=== PATIENT | female | born 1965 | race Caucasian/White ===

== ENCOUNTER 2020-11-12 14:35 | Emergency (ER) | payer OTHER ==
[~2020-11-12] VITALS: Ht 12.7 cm; Wt 1.4 kg
[2020-11-12 14:46] VITALS: BP 124/63
[2020-11-12] MEDS ORDERED: traMADol 50 MG TAB PO ONE (15:45)
[2020-11-12] MEDS ORDERED: LIDOCAINE OINTMENT 5% 35 GM TUBE TP ONE ×3 (16:15→17:52)
[2020-11-12] MEDS ORDERED: NACL 0.9% 1,000 ML IV ONE (16:15)
[2020-11-12] MEDS ORDERED: ONDANSETRON 4 MG/2 ML VIAL IVP ONE (16:20)
[2020-11-12 16:39] LABS: BASOPHILS # (AUTO) 0.1 K/uL (0.00-0.22); BASOPHILS % (AUTO) 0.9 % (0.0-2.0); EOSINOPHILS # (AUTO) 0.6 K/uL (0-0.4); EOSINOPHILS % (AUTO) 6.1 % (0.0-4.0); HEMATOCRIT 38.4 % (36-48); HEMOGLOBIN 12.9 g/dL (12.0-16.0); LYMPHOCYTES # (AUTO) 3.6 K/uL (2.5-16.5); LYMPHOCYTES % (AUTO) 39.7 % (20.5-51.1); MEAN CORPUSCULAR HEMOGLOBIN 31 pg (27-31); MEAN CORPUSCULAR HGB CONC 34 g/dL (33-37); MEAN CORPUSCULAR VOLUME 93.3 fL (80-94); MONOCYTES # (AUTO) 0.4 K/uL (0.8-1.0); MONOCYTES % (AUTO) 4.4 % (1.7-9.3); NEUTROPHILS # (AUTO) 4.4 K/uL (1.8-7.7); NEUTROPHILS % (AUTO) 48.9 % (42.2-75.2); PLATELET COUNT (AUTO) 159 K/uL (140-450); RED BLOOD CELL COUNT(AUTO) 4.12 MIL/uL (4.20-5.40); RED CELL DISTRIBUTION WIDTH 12.8 % (11.6-13.7); WHITE BLOOD COUNT (AUTO) 9.1 K/uL (4.8-10.8)
[2020-11-12] MEDS ORDERED: MORPHINE SULFATE 4 MG/ML SYR IVP ONE (16:40)
[2020-11-12 16:49] LABS: ANION GAP 17.1 (8-16); CARBON DIOXIDE 22.7 mmol/L (21-32); CREATININE 0.9 mg/dL (0.6-1.3); POTASSIUM 3.8 mmol/L (3.5-5.1)
[2020-11-12 16:53] LABS: BARBITURATE, URINE NEGATIVE ng/ml (NEG <=200); BENZODIAZEPINE, URINE NEGATIVE ng/mL (NEG <=200); CANNABINOID, URINE POSITIVE ng/mL (NEG <=50); COCAINE, URINE NEGATIVE ng/mL (NEG <=300); OPIATE, URINE NEGATIVE ng/mL (NEG <=2000); PHENCYCLIDINE SCREEN,URINE NEGATIVE ng/mL (NEG <=25)
[2020-11-12 17:54] VITALS: BP 117/60
== END 2020-11-12 17:50 | disposition home or self-care (01) ==
LOC: MED 14:35
DX: D33.2 Benign neoplasm of brain, unspecified (principal); E11.9 Type 2 diabetes mellitus without complications
CPT/HCPCS: 36415; 70450; 80048; 80305; 81002; 81025; 85025; 96361; 96374; 96375; 99284; J2270; J2405; J7030

== ENCOUNTER 2020-12-10 21:38 | Emergency (ER) | payer OTHER ==
[~2020-12-10] VITALS: Ht 157.5 cm; Wt 90.7 kg
[2020-12-10 21:45] VITALS: BP 133/78
[2020-12-10] MEDS ORDERED: METOCLOPRAMIDE 10 MG/2 ML INJ VIAL IVP ONE (22:35)
[2020-12-10 22:36] LABS: BASOPHILS # (AUTO) 0.1 K/uL (0.00-0.22); BASOPHILS % (AUTO) 1.3 % (0.0-2.0); EOSINOPHILS # (AUTO) 0.3 K/uL (0-0.4); EOSINOPHILS % (AUTO) 3.8 % (0.0-4.0); HEMATOCRIT 40.7 % (36-48); HEMOGLOBIN 13.9 g/dL (12.0-16.0); LYMPHOCYTES # (AUTO) 4.3 K/uL (2.5-16.5); LYMPHOCYTES % (AUTO) 50.9 % (20.5-51.1); MEAN CORPUSCULAR HEMOGLOBIN 31 pg (27-31); MEAN CORPUSCULAR HGB CONC 34 g/dL (33-37); MEAN CORPUSCULAR VOLUME 92.1 fL (80-94); MONOCYTES # (AUTO) 0.6 K/uL (0.8-1.0); MONOCYTES % (AUTO) 6.8 % (1.7-9.3); NEUTROPHILS # (AUTO) 3.1 K/uL (1.8-7.7); NEUTROPHILS % (AUTO) 37.2 % (42.2-75.2); PLATELET COUNT (AUTO) 161 K/uL (140-450); RED BLOOD CELL COUNT(AUTO) 4.42 MIL/uL (4.20-5.40); RED CELL DISTRIBUTION WIDTH 12.9 % (11.6-13.7); WHITE BLOOD COUNT (AUTO) 8.4 K/uL (4.8-10.8)
[2020-12-10] MEDS ORDERED: KETOROLAC 15 MG/ML VIAL IVP ONE (22:50)
[2020-12-10] MEDS ORDERED: NACL 0.9% 1,000 ML IV ONE (22:50)
[2020-12-10 22:57] LABS: ALBUMIN 3.6 g/dL (3.4-5.0); ANION GAP 10.1 (8-16); CARBON DIOXIDE 26.5 mmol/L (21-32); CREATININE 0.7 mg/dL (0.6-1.3); MAGNESIUM 1.5 mg/dL (1.8-2.4); PHOSPHORUS 2.9 mg/dL (2.5-4.9); POTASSIUM 3.6 mmol/L (3.5-5.1); TOTAL BILIRUBIN 0.5 mg/dL (0.0-1.0)
[2020-12-10] MEDS ORDERED: ALBUTEROL HFA MDI 90 MCG/ACTUATION 8 GM INH ONE (23:15)
[2020-12-10 23:58] LABS: APPEARANCE,URINE CLEAR (CLEAR); BILIRUBIN,URINE NEGATIVE (NEGATIVE); BLOOD, URINE NEGATIVE (NEGATIVE); COLOR,URINE YELLOW (YELLOW); LEUKOCYTE ESTERASE ,URINE 1+ (NEGATIVE); NITRITE, URINE NEGATIVE (NEGATIVE); UGLUCOSE NEGATIVE (NEGATIVE)
[2020-12-11 00:08] LABS: RBC,URINE 0-5 /HPF (0-5)
[2020-12-11] MEDS ORDERED: ONDA-24 SL (00:43)
[2020-12-11] MEDS ORDERED: AMOX-1000 PO (00:43)
[2020-12-11] MEDS ORDERED: METR500T1 PO (00:43)
[2020-12-11 00:54] VITALS: BP 112/69
== END 2020-12-11 00:54 | disposition home or self-care (01) ==
LOC: MED 21:38
DX: R10.11 Right upper quadrant pain (principal); R42 Dizziness and giddiness; R11.0 Nausea; F12.10 Cannabis abuse, uncomplicated; E11.9 Type 2 diabetes mellitus without complications; E07.9 Disorder of thyroid, unspecified
CPT/HCPCS: 36415; 74176; 80053; 81001; 81025; 83690; 83735; 84100; 84484; 85025; 87086; 93005; 94664; 96361; 96374; 96375; 99285; J1885; J2765; J7030

== ENCOUNTER 2020-12-19 14:01 | Emergency (ER) | payer OTHER ==
[~2020-12-19] VITALS: Ht 157.5 cm; Wt 90.7 kg
[~2020-12-19 14:01] MED LIST: AMOX-1000 PO; METR500T1 PO; ONDA-24 SL
[2020-12-19 14:03] VITALS: BP 102/62
--- NOTE | 2020-12-19 14:13 | NUR ---
Pt ambulated to bed 04 steady/even gait.
--- NOTE | 2020-12-19 14:18 | NUR ---
Dr. Ellison is evaluating patient at bedside.
--- NOTE | 2020-12-19 14:20 | NUR ---
55 y/o F BIB self from home with c/c R finger pain. Patient A&Ox4, states she injured her R 5th digit, states 10/10 throbbing/constant, non-radiating pain. Limited ROM, unable to wiggle fingers, +CMS. States Ibuprofen without relief. Denies N/V/D, dizziness, FOOTE, other injuries. Bed locked in loewst position, side rails x 1. PMH: DM, hypothyroidism, asthma Meds: metformin, levothyroxine NKA Sx:
[2020-12-19] MEDS ORDERED: NAPR-54 PO (14:51)
[2020-12-19] MEDS ORDERED: KETOROLAC 30 MG/ML VIAL IM ONE (14:55)
[2020-12-19 15:30] VITALS: BP 102/62
== END 2020-12-19 15:50 | disposition home or self-care (01) ==
LOC: MED 14:01
DX: S63.616A Unspecified sprain of right little finger, initial encounter (principal); E11.9 Type 2 diabetes mellitus without complications; E07.9 Disorder of thyroid, unspecified; Z79.899 Other long term (current) drug therapy; X58.XXXA Exposure to other specified factors, initial encounter; Y93.89 Activity, other specified; Y92.89 Other specified places as the place of occurrence of the external cause; Y99.8 Other external cause status
CPT/HCPCS: 29130; 73130; 96372; 99283; J1885

== ENCOUNTER 2021-04-30 10:08 | Emergency (ER) | payer OTHER ==
[~2021-04-30] VITALS: Ht 157.5 cm; Wt 81.6 kg
[~2021-04-30 10:08] MED LIST changes: +NAPR-54 PO; +ONDA-188 SL; -ONDA-24 SL
[2021-04-30 10:11] VITALS: BP 129/79
[2021-04-30] MEDS ORDERED: HYDROcodone/APAP 5/325 MG 1 TAB TAB PO ONE (10:45)
[2021-04-30] MEDS ORDERED: MECL-303 PO (13:06)
[2021-04-30 13:23] LABS: APPEARANCE,URINE CLEAR (CLEAR); BILIRUBIN,URINE NEGATIVE (NEGATIVE); BLOOD, URINE NEGATIVE (NEGATIVE); COLOR,URINE YELLOW (YELLOW); LEUKOCYTE ESTERASE ,URINE NEGATIVE (NEGATIVE); NITRITE, URINE NEGATIVE (NEGATIVE); UGLUCOSE 3+ (NEGATIVE)
[2021-04-30 13:36] LABS: RBC,URINE 0-5 /HPF (0-5); WBC,URINE 0-5 /HPF (0-5)
[2021-04-30] MEDS ORDERED: IBUPROFEN 400 MG TAB PO ONE (13:50)
[2021-04-30 14:02] VITALS: BP 123/86
== END 2021-04-30 14:02 | disposition home or self-care (01) ==
LOC: MED 10:08
DX: R51.9 Headache, unspecified (principal); E11.9 Type 2 diabetes mellitus without complications; G93.89 Other specified disorders of brain; Z86.69 Personal history of other diseases of the nervous system and sense organs; Z86.39 Personal history of other endocrine, nutritional and metabolic disease; Z79.899 Other long term (current) drug therapy; Z79.1 Long term (current) use of non-steroidal anti-inflammatories (NSAID); Z79.2 Long term (current) use of antibiotics
CPT/HCPCS: 70450; 81001; 93005; 99285

== ENCOUNTER 2021-06-24 12:23 | Emergency (ER) | payer OTHER ==
[~2021-06-24] VITALS: Ht 157.5 cm; Wt 83.9 kg
[~2021-06-24 12:23] MED LIST changes: +MECL-303 PO
[2021-06-24 12:26] VITALS: BP 125/90
--- NOTE | 2021-06-24 12:35 | NUR ---
C/O 12/10 HEAD / NECK PAIN S/P SYNCOPE , DIZZINESS & FALL X YESTERDAY. PMH: BRAIN TUMOR, ASTHMA, SEIZURE , CVA, C SECTION
[2021-06-24 13:09] LABS: BASOPHILS % (AUTO) 0.7 % (0.0-2.0); EOSINOPHILS # (AUTO) 0.1 K/uL (0-0.4); HEMATOCRIT 48.1 % (36-48); HEMOGLOBIN 16.4 g/dL (12.0-16.0); LYMPHOCYTES # (AUTO) 2.6 K/uL (2.5-16.5); LYMPHOCYTES % (AUTO) 44.4 % (20.5-51.1); MEAN CORPUSCULAR HEMOGLOBIN 31 pg (27-31); MEAN CORPUSCULAR HGB CONC 34 g/dL (33-37); MEAN CORPUSCULAR VOLUME 91.4 fL (80-94); MONOCYTES # (AUTO) 0.5 K/uL (0.8-1.0); MONOCYTES % (AUTO) 8.8 % (1.7-9.3); NEUTROPHILS # (AUTO) 2.6 K/uL (1.8-7.7); NEUTROPHILS % (AUTO) 44.1 % (42.2-75.2); PLATELET COUNT (AUTO) 178 K/uL (140-450); RED BLOOD CELL COUNT(AUTO) 5.26 MIL/uL (4.20-5.40); RED CELL DISTRIBUTION WIDTH 13.7 % (11.6-13.7)
[2021-06-24] MEDS ORDERED: ACETAMINOPHEN EXTRA STRENGTH 500 MG TAB PO ONE (13:45)
[2021-06-24 13:50] LABS: ANION GAP 11.9 (8-16); CARBON DIOXIDE 26.1 mmol/L (21-32); CREATININE 0.9 mg/dL (0.6-1.3); TOTAL BILIRUBIN 0.6 mg/dL (0.0-1.0)
[2021-06-24 16:26] VITALS: BP 125/90
--- NOTE | 2021-06-24 16:26 | NUR ---
DC WITHOUT DC PAPER.Patient discharged with v/s stable. Written and verbal after care instructions given and explained. Patient verbalized understanding. Ambulatory with steady gait. All questions addressed prior to discharge. Advised to follow up with PMD.
== END 2021-06-24 16:26 | disposition home or self-care (01) ==
LOC: MED 12:23
DX: R55 Syncope and collapse (principal); R11.0 Nausea; R51.9 Headache, unspecified; E11.9 Type 2 diabetes mellitus without complications; E07.9 Disorder of thyroid, unspecified; Z79.899 Other long term (current) drug therapy
CPT/HCPCS: 36415; 70450; 70496; 70498; 71045; 80053; 84484; 85025; 93005; 99285; Q9967

== ENCOUNTER 2022-03-01 18:53 | Emergency (ER) | payer OTHER ==
[~2022-03-01] VITALS: Ht 157.5 cm; Wt 86.2 kg
[2022-03-01 19:10] VITALS: BP 133/77
--- NOTE | 2022-03-01 19:13 | NUR ---
TO LABBY A/W BED AMBULATORY
--- NOTE | 2022-03-01 19:56 | NUR ---
PT TO BED 7
--- NOTE | 2022-03-01 20:12 | NUR ---
Patient being evaluated by physician at bedside.
--- NOTE | 2022-03-01 20:15 | NUR ---
RECEIVED IN BED 7 WITH C/O A/P. PT WITH H/O GASTRIC BYPASS
[2022-03-01] MEDS ORDERED: MORPHINE SULFATE 4 MG/ML SYR IVP ONE ×2 (20:25→23:15)
[2022-03-01] MEDS ORDERED: ONDANSETRON 4 MG/2 ML VIAL IVP ONE ×2 (20:25→23:15)
[2022-03-01 20:45] LABS: BASOPHILS # (AUTO) 0.1 K/uL (0.00-0.22); BASOPHILS % (AUTO) 0.8 % (0.0-2.0); EOSINOPHILS # (AUTO) 0.2 K/uL (0-0.4); EOSINOPHILS % (AUTO) 3.3 % (0.0-4.0); HEMATOCRIT 41.7 % (36-48); HEMOGLOBIN 14.1 g/dL (12.0-16.0); LYMPHOCYTES # (AUTO) 3.9 K/uL (2.5-16.5); LYMPHOCYTES % (AUTO) 51.8 % (20.5-51.1); MEAN CORPUSCULAR HEMOGLOBIN 31 pg (27-31); MEAN CORPUSCULAR HGB CONC 34 g/dL (33-37); MEAN CORPUSCULAR VOLUME 91.3 fL (80-94); MONOCYTES # (AUTO) 0.4 K/uL (0.8-1.0); MONOCYTES % (AUTO) 5.1 % (1.7-9.3); NEUTROPHILS # (AUTO) 2.9 K/uL (1.8-7.7); PLATELET COUNT (AUTO) 178 K/uL (140-450); RED BLOOD CELL COUNT(AUTO) 4.56 MIL/uL (4.20-5.40); RED CELL DISTRIBUTION WIDTH 12.8 % (11.6-13.7); WHITE BLOOD COUNT (AUTO) 7.5 K/uL (4.8-10.8)
--- NOTE | 2022-03-01 20:50 | NUR ---
UA TO LAB
[2022-03-01 21:06] LABS: APPEARANCE,URINE CLEAR (CLEAR); BILIRUBIN,URINE 1+ (NEGATIVE); BLOOD, URINE NEGATIVE (NEGATIVE); COLOR,URINE YELLOW (YELLOW); LEUKOCYTE ESTERASE ,URINE NEGATIVE (NEGATIVE); NITRITE, URINE NEGATIVE (NEGATIVE); UGLUCOSE NEGATIVE (NEGATIVE)
[2022-03-01 21:08] LABS: ALBUMIN 3.5 g/dL (3.4-5.0); ANION GAP 12.3 (8-16); ASPARTATE AMINOTRANSFERASE 40 U/L (15-37); CARBON DIOXIDE 28.4 mmol/L (21-32); CHLORIDE 104 mmol/L (98-107); CREATININE 0.7 mg/dL (0.6-1.3); GFR ARICAN-AMERICAN 112 mL/min (>90); GLUCOSE 167 mg/dL (74-106); LIPASE 79 U/L (73-393); POTASSIUM 3.7 mmol/L (3.5-5.1); SODIUM SERUM 141 mmol/L (136-145); TOTAL BILIRUBIN 0.7 mg/dL (0.0-1.0); UREA NITROGEN, BLOOD 10 mg/dL (7-18)
[2022-03-01] MEDS ORDERED: ACET-8386 PO (23:58)
[2022-03-01] MEDS ORDERED: SUCR1TAB35 PO (23:58)
[2022-03-01] MEDS ORDERED: FAMO-90 PO (23:58)
--- NOTE | 2022-03-02 00:30 | NUR ---
Patient discharged with v/s stable. Written and verbal after care instructions given and explained. Patient alert, oriented and verbalized understanding of instructions. Ambulatory with steady gait. All questions addressed prior to discharge. ID band removed. Patient advised to follow up with PMD. Rx of CARAFATE, PEPCID, AND HYDROCODONE given. Patient educated on indication of medication including possible reaction and side effects. Opportunity to ask questions provided and answered.
== END 2022-03-02 00:30 | disposition home or self-care (01) ==
LOC: MED 18:53
DX: R10.13 Epigastric pain (principal)
CPT/HCPCS: 36415; 71045; 74177; 80053; 81003; 83690; 84484; 85025; 93005; 96374; 96375; 96376; 99285; J2270; J2405; Q9967

== ENCOUNTER 2022-06-17 09:54 | Emergency (ER) | payer OTHER ==
[~2022-06-17] VITALS: Ht 157.5 cm; Wt 87.1 kg
[~2022-06-17 09:54] MED LIST changes: +ACET-8905 PO; +FAMO-90 PO; +SUCR1TAB35 PO
[2022-06-17 10:00] VITALS: BP 120/98
[2022-06-17] MEDS ORDERED: DICYCLOMINE 20 MG/2 ML VIAL IM ONE (10:10)
[2022-06-17] MEDS ORDERED: METOCLOPRAMIDE 10 MG/2 ML INJ VIAL IM ONE (10:10)
[2022-06-17] MEDS ORDERED: ALUMINUM HYD/MAG/SIMETHICONE 30 ML UDC PO ONE (10:10)
[2022-06-17 10:46] LABS: BASOPHILS # (AUTO) 0.1 K/uL (0.00-0.22); BASOPHILS % (AUTO) 1.5 % (0.0-2.0); EOSINOPHILS # (AUTO) 0.1 K/uL (0-0.4); EOSINOPHILS % (AUTO) 1.8 % (0.0-4.0); HEMATOCRIT 43.5 % (36-48); HEMOGLOBIN 15.2 g/dL (12.0-16.0); LYMPHOCYTES # (AUTO) 2.9 K/uL (2.5-16.5); LYMPHOCYTES % (AUTO) 42.2 % (20.5-51.1); MEAN CORPUSCULAR HEMOGLOBIN 31 pg (27-31); MEAN CORPUSCULAR HGB CONC 35 g/dL (33-37); MEAN CORPUSCULAR VOLUME 88.9 fL (80-94); MONOCYTES # (AUTO) 0.3 K/uL (0.8-1.0); MONOCYTES % (AUTO) 3.9 % (1.7-9.3); NEUTROPHILS # (AUTO) 3.5 K/uL (1.8-7.7); NEUTROPHILS % (AUTO) 50.6 % (42.2-75.2); PLATELET COUNT (AUTO) 173 K/uL (140-450); RED BLOOD CELL COUNT(AUTO) 4.89 MIL/uL (4.20-5.40); RED CELL DISTRIBUTION WIDTH 13.4 % (11.6-13.7); WHITE BLOOD COUNT (AUTO) 6.9 K/uL (4.8-10.8)
[2022-06-17 11:06] LABS: ALBUMIN 4.1 g/dL (3.4-5.0); ANION GAP 14.6 (8-16); CREATININE 0.8 mg/dL (0.6-1.3); POTASSIUM 3.6 mmol/L (3.5-5.1); TOTAL BILIRUBIN 0.9 mg/dL (0.0-1.0)
[2022-06-17] MEDS ORDERED: IBUPROFEN 600 MG TAB PO ONE (11:45)
[2022-06-17] MEDS ORDERED: FAMOTIDINE 20 MG TAB PO ONE (11:45)
[2022-06-17] MEDS ORDERED: ACETAMINOPHEN EXTRA STRENGTH 500 MG TAB PO ONE (11:45)
[2022-06-17 11:47] LABS: APPEARANCE,URINE HAZY (CLEAR); BILIRUBIN,URINE 2+ (NEGATIVE); BLOOD, URINE NEGATIVE (NEGATIVE); COLOR,URINE YELLOW (YELLOW); LEUKOCYTE ESTERASE ,URINE NEGATIVE (NEGATIVE); NITRITE, URINE NEGATIVE (NEGATIVE); PH,URINE 5.5 (5.0-9.0); UGLUCOSE 1+ (NEGATIVE)
[2022-06-17 12:02] LABS: RBC,URINE NONE SEEN /HPF (0-5); WBC,URINE 0-5 /HPF (0-5)
[2022-06-17 12:03] LABS: URINE AMORPHOUS URATE 1+ /HPF (None Seen)
--- NOTE | 2022-06-17 12:20 | NUR ---
a/o times 4, nad, abd pain 6/, + nausea, o2 sat 99% ra, sr up times2
--- NOTE | 2022-06-17 12:45 | NUR ---
pt feels better about abd pain 08/10, o2 sat 99% ra, sr up times 2
[2022-06-17] MEDS ORDERED: ACET-9525 PO (12:48)
[2022-06-17] MEDS ORDERED: METO-485 PO (12:48)
[2022-06-17 13:05] VITALS: BP 112/75
--- NOTE | 2022-06-17 13:15 | NUR ---
Patient discharged with v/s stable. Written and verbal after care instructions given and explained. Patient verbalized understanding. Ambulatory with steady gait. All questions addressed prior to discharge. Advised to follow up with PMD.
== END 2022-06-17 13:15 | disposition home or self-care (01) ==
LOC: MED 09:54
DX: R10.13 Epigastric pain (principal); Z20.822 Contact with and (suspected) exposure to COVID-19; R11.2 Nausea with vomiting, unspecified; R19.7 Diarrhea, unspecified; K44.9 Diaphragmatic hernia without obstruction or gangrene; I10 Essential (primary) hypertension; E11.9 Type 2 diabetes mellitus without complications; E07.9 Disorder of thyroid, unspecified; J44.9 Chronic obstructive pulmonary disease, unspecified; K21.9 Gastro-esophageal reflux disease without esophagitis; Z79.899 Other long term (current) drug therapy
CPT/HCPCS: 36415; 80053; 81001; 83690; 85025; 87426; 87804; 96372; 99284; J0500; J2765

== ENCOUNTER 2022-08-17 09:10 | Emergency (ER) | payer OTHER ==
[~2022-08-17] VITALS: Ht 157.5 cm; Wt 89.4 kg
[~2022-08-17 09:10] MED LIST changes: +ACET-9525 PO; +METO-485 PO
[2022-08-17 09:13] VITALS: BP 125/52
--- NOTE | 2022-08-17 10:35 | NUR ---
pt amb to bed 12
--- NOTE | 2022-08-17 10:52 | NUR ---
MD at bedside evaluating patient
== END 2022-08-17 11:07 | disposition home or self-care (01) ==
LOC: MED 09:10
DX: H00.014 Hordeolum externum left upper eyelid (principal); J45.909 Unspecified asthma, uncomplicated; I10 Essential (primary) hypertension; K21.9 Gastro-esophageal reflux disease without esophagitis; E03.9 Hypothyroidism, unspecified; Z79.899 Other long term (current) drug therapy
CPT/HCPCS: 99282

== ENCOUNTER 2022-11-12 17:50 | Emergency (ER) | payer OTHER ==
[~2022-11-12] VITALS: Ht 160 cm; Wt 81.6 kg
[2022-11-12 18:03] VITALS: BP 144/79
--- NOTE | 2022-11-12 18:20 | NUR ---
pt ambulated to bed 3 from [facility]
--- NOTE | 2022-11-12 18:53 | NUR ---
radiology wheeled pt to ct scan
--- NOTE | 2022-11-12 19:15 | NUR ---
Pt report given to Noe CORRIGAN. Transfer of care at this time.
--- NOTE | 2022-11-12 19:20 | NUR ---
Patient resting in bed, A/Ox4, chest rise and fall symmetrical, no c/o pain or s/s of distress, on monitor.
[2022-11-12] MEDS ORDERED: ONDANSETRON 4 MG/2 ML VIAL IVP ONE (19:50)
[2022-11-12] MEDS ORDERED: MORPHINE SULFATE 4 MG/ML SYR IVP ONE (19:50)
[2022-11-12 20:18] LABS: BASOPHILS # (AUTO) 0.1 K/uL (0.00-0.22); EOSINOPHILS # (AUTO) 0.3 K/uL (0-0.4); HEMATOCRIT 42.2 % (36-48); HEMOGLOBIN 14.4 g/dL (12.0-16.0); LYMPHOCYTES # (AUTO) 3.9 K/uL (2.5-16.5); LYMPHOCYTES % (AUTO) 50.4 % (20.5-51.1); MEAN CORPUSCULAR HEMOGLOBIN 31 pg (27-31); MEAN CORPUSCULAR HGB CONC 34 g/dL (33-37); MEAN CORPUSCULAR VOLUME 91.6 fL (80-94); MONOCYTES # (AUTO) 0.3 K/uL (0.8-1.0); MONOCYTES % (AUTO) 4.3 % (1.7-9.3); NEUTROPHILS # (AUTO) 3.1 K/uL (1.8-7.7); NEUTROPHILS % (AUTO) 40.3 % (42.2-75.2); PLATELET COUNT (AUTO) 174 K/uL (140-450); RED BLOOD CELL COUNT(AUTO) 4.61 MIL/uL (4.20-5.40); RED CELL DISTRIBUTION WIDTH 13.6 % (11.6-13.7); WHITE BLOOD COUNT (AUTO) 7.8 K/uL (4.8-10.8)
[2022-11-12 20:30] LABS: ANION GAP 12.1 (8-16); CARBON DIOXIDE 27.8 mmol/L (21-32); CREATININE 0.7 mg/dL (0.6-1.3); POTASSIUM 3.9 mmol/L (3.5-5.1)
--- NOTE | 2022-11-12 20:33 | NUR ---
Patient resting in bed, A/Ox4, chest rise and fall symmetrical, no c/o pain or s/s of distress, on monitor.
--- NOTE | 2022-11-12 21:37 | NUR ---
PT ACCEPTED TO [facility] ER BY DR ZULETA, FOR ER-ER TRANSFER. # FOR REPORT [phone]
--- NOTE | 2022-11-12 22:02 | NUR ---
Patient to be transferred to [facility] ER. Is being transferred due to higher level of care. Receiving facility has accepting physician and available space. ER physician has signed transfer form. Patient or responsible democrat has agreed to transfer and signed form. Patient belongings inventoried and will be sent with patient. Copy of nursing notes, lab reports, EKG, Physicians Orders and X-rays to be sent with patient. Report called to [facility] ER Nurse Ronda CORRIGAN at receiving facility. [facility] ER Nurse Ronda RN verbalized understanding of report, no further questions. Patient verbally informed that Dr. Dickinson verbalized "not giving insulin" for patient lab draw BG [id number]. [facility] ER Nurse Ronda CORRIGAN understanding. [facility] ambulance service has been called for transfer. ETA is 15 minutes.
--- NOTE | 2022-11-12 22:05 | NUR ---
Patient resting in bed, A/Ox4, chest rise and fall symmetrical, no c/o pain or s/s of distress, on monitor.
[2022-11-12 22:29] VITALS: BP 124/67
--- NOTE | 2022-11-12 22:29 | NUR ---
Transfer report given to [facility] Ambulance staff Kalpana. [facility] Ambulance staff Kalpana verbalized understanding of report, no further questions. Patient safely transferred to [facility] and to ambulance. All of patient's belongings, radiology CD, and all transfer information sent with patient.
== END 2022-11-12 22:30 | disposition short-term general hospital (02) ==
LOC: MED 17:50
DX: S00.93XA Contusion of unspecified part of head, initial encounter (principal); M79.641 Pain in right hand; J45.909 Unspecified asthma, uncomplicated; K21.9 Gastro-esophageal reflux disease without esophagitis; E11.9 Type 2 diabetes mellitus without complications; Z79.4 Long term (current) use of insulin; Z79.899 Other long term (current) drug therapy; W18.30XA Fall on same level, unspecified, initial encounter; Y93.89 Activity, other specified; Y92.89 Other specified places as the place of occurrence of the external cause; Y99.8 Other external cause status
CPT/HCPCS: 36415; 70450; 72125; 73130; 80048; 85025; 96374; 96375; 99285; J2270; J2405

== ENCOUNTER 2023-02-16 13:19 | Emergency (ER) | payer OTHER ==
[~2023-02-16] VITALS: Ht 157.5 cm; Wt 90.7 kg
[2023-02-16 13:20] VITALS: BP 120/74; PULSE 79; RESP 16; TEMP 97; O2SAT 96
[2023-02-16 13:45] VITALS: O2SAT 96
[2023-02-16 14:27] LABS: BASOPHILS % (AUTO) 0.5 % (0.0-2.0); EOSINOPHILS # (AUTO) 0.3 K/uL (0-0.4); EOSINOPHILS % (AUTO) 3.8 % (0.0-4.0); HEMATOCRIT 41.4 % (36-48); HEMOGLOBIN 14.3 g/dL (12.0-16.0); LYMPHOCYTES # (AUTO) 2.9 K/uL (2.5-16.5); LYMPHOCYTES % (AUTO) 39.1 % (20.5-51.1); MEAN CORPUSCULAR HEMOGLOBIN 32 pg (27-31); MEAN CORPUSCULAR HGB CONC 35 g/dL (33-37); MEAN CORPUSCULAR VOLUME 92.4 fL (80-94); MONOCYTES # (AUTO) 0.3 K/uL (0.8-1.0); MONOCYTES % (AUTO) 4.2 % (1.7-9.3); NEUTROPHILS # (AUTO) 3.8 K/uL (1.8-7.7); NEUTROPHILS % (AUTO) 52.4 % (42.2-75.2); PLATELET COUNT (AUTO) 153 K/uL (140-450); RED BLOOD CELL COUNT(AUTO) 4.48 MIL/uL (4.20-5.40); RED CELL DISTRIBUTION WIDTH 13.1 % (11.6-13.7); WHITE BLOOD COUNT (AUTO) 7.3 K/uL (4.8-10.8)
[2023-02-16 14:36] LABS: INR 0.98 (0.8-1.2); PARTIAL THROMBOPLASTIN TIME 25.6 secs (22-35.6); PROTHROMBIN TIME 10.3 secs (10.8-13.4)
[2023-02-16] MEDS ORDERED: METOCLOPRAMIDE 10 MG/2 ML INJ VIAL IVP ONE (14:40)
[2023-02-16] MEDS ORDERED: NACL 0.9% 1,000 ML IV ONE (14:40)
[2023-02-16] MEDS ORDERED: DEXAMETHASONE 10 MG/ML VIAL IVP ONE (14:40)
[2023-02-16] MEDS ORDERED: diphenhydrAMINE 50 MG/ML VIAL IVP ONE (14:40)
[2023-02-16 14:43] LABS: ALANINE AMINOTRANSFERASE 78 U/L (12-78); ALBUMIN 3.5 g/dL (3.4-5.0); ALKALINE PHOSPHATASE 105 U/L (50-136); ANION GAP 14.6 (8-16); ASPARTATE AMINOTRANSFERASE 53 U/L (15-37); CALCIUM 9.1 mg/dL (8.5-10.1); CARBON DIOXIDE 25.3 mmol/L (21-32); CHLORIDE 103 mmol/L (98-107); CREATININE 0.9 mg/dL (0.6-1.3); GFR ARICAN-AMERICAN 83 mL/min (>90); GFR NON ARICAN-AMERICAN 69 mL/min (>90); GLUCOSE 275 mg/dL (74-106); POTASSIUM 3.9 mmol/L (3.5-5.1); SODIUM SERUM 139 mmol/L (136-145); TOTAL BILIRUBIN 0.5 mg/dL (0.0-1.0); TOTAL PROTEIN, SERUM 7.2 g/dL (6.4-8.2); UREA NITROGEN, BLOOD 15 mg/dL (7-18)
[2023-02-16] MEDS ORDERED: TETRACAINE HCL/PF 0.5% OPTH 4 ML BTL OP ONE (15:10)
[2023-02-16] MEDS ORDERED: FLUORESCEIN OPTH STRIP 1 MG OP ONE (15:10)
[2023-02-16] MEDS ORDERED: TOMOMETER 1 DEV DEV MC ONE (15:28)
[2023-02-16] MEDS ORDERED: HYDROcodone/APAP 10/325 MG 1 TAB TAB PO ONE (16:25)
[2023-02-16] MEDS ORDERED: GABAPENTIN 300 MG CAP PO ONE (16:25)
[2023-02-16] MEDS ORDERED: BACL10TA4 PO (16:35)
[2023-02-16] MEDS ORDERED: ACET-5636 PO (16:35)
[2023-02-16] MEDS ORDERED: METH4TAB1 PO (16:35)
[2023-02-16] MEDS ORDERED: GABA300C PO (16:35)
[2023-02-16 17:15] VITALS: BP 121/74; PULSE 82; RESP 16; TEMP 98; O2SAT 99
== END 2023-02-16 17:15 | disposition home or self-care (01) ==
LOC: MED 13:19
DX: B02.9 Zoster without complications (principal); R93.0 Abnormal findings on diagnostic imaging of skull and head, not elsewhere classified; R51.9 Headache, unspecified; M19.09 Primary osteoarthritis, other specified site; J45.909 Unspecified asthma, uncomplicated; E11.9 Type 2 diabetes mellitus without complications; K21.9 Gastro-esophageal reflux disease without esophagitis; Z86.73 Personal history of transient ischemic attack (TIA), and cerebral infarction without residual deficits; Z79.4 Long term (current) use of insulin; Z79.899 Other long term (current) drug therapy
CPT/HCPCS: 36415; 70450; 70496; 70498; 71045; 80053; 84484; 85025; 85610; 85730; 93005; 96361; 96374; 96375; 99285; J1100; J1200; J2765; Q0092; Q9967; J7030

== ENCOUNTER 2023-03-05 17:55 | Emergency (ER) | payer OTHER ==
[~2023-03-05] VITALS: Ht 154.9 cm; Wt 87.8 kg
[~2023-03-05 17:55] MED LIST changes: +ACET-5636 PO; +BACL10TA4 PO; +GABA300C PO; +METH4TAB1 PO
[2023-03-05 18:07] VITALS: BP 131/83; PULSE 76; RESP 20; TEMP 97.7; O2SAT 96
[2023-03-05] MEDS ORDERED: hydrOXYzine PAMOATE 25 MG CAP PO STA (19:36)
[2023-03-05] MEDS ORDERED: PROCHLORPERAZINE 5 MG TAB PO ONE (19:40)
[2023-03-05] MEDS ORDERED: HYDROcodone/APAP 5/325 MG 1 TAB TAB PO ONE (19:40)
[2023-03-05] MEDS ORDERED: ACET-10509 PO (21:08)
[2023-03-05] MEDS ORDERED: ONDA-188 PO (21:08)
[2023-03-05] MEDS ORDERED: HYDR25CA10 PO (21:08)
[2023-03-05 21:16] VITALS: BP 131/83; PULSE 76; RESP 20; TEMP 97.7; O2SAT 96
== END 2023-03-05 21:16 | disposition home or self-care (01) ==
LOC: MED 17:55
DX: R51.9 Headache, unspecified (principal); E11.9 Type 2 diabetes mellitus without complications; J45.909 Unspecified asthma, uncomplicated; K21.9 Gastro-esophageal reflux disease without esophagitis; Z86.73 Personal history of transient ischemic attack (TIA), and cerebral infarction without residual deficits; Z86.69 Personal history of other diseases of the nervous system and sense organs; Z86.39 Personal history of other endocrine, nutritional and metabolic disease; Z79.899 Other long term (current) drug therapy; Z79.2 Long term (current) use of antibiotics
CPT/HCPCS: 70450; 99284; Q0164; Q0177

== ENCOUNTER 2023-04-08 14:53 | Emergency (ER) | payer OTHER ==
[~2023-04-08] VITALS: Ht 162.6 cm; Wt 81.6 kg
[~2023-04-08 14:53] MED LIST changes: +ACET-10509 PO; +HYDR25CA10 PO; +ONDA-188 PO
[2023-04-08 15:30] VITALS: BP 140/91; PULSE 90; RESP 18; TEMP 98.5; O2SAT 98
[2023-04-08 16:29] LABS: BASOPHILS % (AUTO) 0.5 % (0.0-2.0); EOSINOPHILS # (AUTO) 0.1 K/uL (0-0.4); EOSINOPHILS % (AUTO) 1.9 % (0.0-4.0); HEMOGLOBIN 16.8 g/dL (12.0-16.0); LYMPHOCYTES # (AUTO) 2.7 K/uL (2.5-16.5); LYMPHOCYTES % (AUTO) 34.9 % (20.5-51.1); MEAN CORPUSCULAR HEMOGLOBIN 32 pg (27-31); MEAN CORPUSCULAR HGB CONC 34 g/dL (33-37); MEAN CORPUSCULAR VOLUME 92.6 fL (80-94); MONOCYTES # (AUTO) 0.6 K/uL (0.8-1.0); NEUTROPHILS # (AUTO) 4.2 K/uL (1.8-7.7); NEUTROPHILS % (AUTO) 54.7 % (42.2-75.2); PLATELET COUNT (AUTO) 220 K/uL (140-450); RED BLOOD CELL COUNT(AUTO) 5.29 MIL/uL (4.20-5.40); RED CELL DISTRIBUTION WIDTH 13.5 % (11.6-13.7); WHITE BLOOD COUNT (AUTO) 7.7 K/uL (4.8-10.8)
[2023-04-08] MEDS ORDERED: MORPHINE SULFATE 4 MG/ML SYR IVP ONE (16:30)
[2023-04-08 16:42] LABS: ALBUMIN 3.9 g/dL (3.4-5.0); ANION GAP 19.1 (8-16); CALCIUM 9.2 mg/dL (8.5-10.1); CARBON DIOXIDE 22.5 mmol/L (21-32); CREATININE 0.8 mg/dL (0.6-1.3); POTASSIUM 3.6 mmol/L (3.5-5.1); TOTAL BILIRUBIN 1.4 mg/dL (0.0-1.0)
[2023-04-08] MEDS ORDERED: ONDANSETRON 4 MG/2 ML VIAL IVP ONE (16:55)
[2023-04-08 17:14] VITALS: TEMP 98.5
[2023-04-08 17:15] VITALS: O2SAT 98
[2023-04-08] MEDS ORDERED: KETOROLAC 30 MG/ML VIAL ONE (19:02)
[2023-04-08] MEDS ORDERED: KETOROLAC 30 MG/ML VIAL IVP ONE (19:05)
[2023-04-08 19:27] VITALS: O2SAT 99
[2023-04-08 19:29] LABS: APPEARANCE,URINE CLEAR (CLEAR); BILIRUBIN,URINE 2+ (NEGATIVE); BLOOD, URINE NEGATIVE (NEGATIVE); COLOR,URINE YELLOW (YELLOW); LEUKOCYTE ESTERASE ,URINE NEGATIVE (NEGATIVE); NITRITE, URINE NEGATIVE (NEGATIVE); PH,URINE 6.5 (5.0-9.0); PROTEIN,URINE 2+ (NEGATIVE); UGLUCOSE 2+ (NEGATIVE)
[2023-04-08 19:43] LABS: ICTOTEST NEGATIVE (NEGATIVE)
[2023-04-08] MEDS ORDERED: NACL 0.9% 1,000 ML IV ONE (20:00)
[2023-04-08] MEDS ORDERED: METOCLOPRAMIDE 10 MG/2 ML INJ VIAL IVP ONE (20:20)
[2023-04-08] MEDS ORDERED: IBUP-2213 PO (21:34)
[2023-04-08 22:00] VITALS: BP 116/75; PULSE 98; RESP 16; O2SAT 99
== END 2023-04-08 22:00 | disposition home or self-care (01) ==
LOC: MED 14:53
DX: K56.7 Ileus, unspecified (principal); K52.9 Noninfective gastroenteritis and colitis, unspecified; E86.0 Dehydration; K21.9 Gastro-esophageal reflux disease without esophagitis; J45.909 Unspecified asthma, uncomplicated; E11.9 Type 2 diabetes mellitus without complications; Z86.73 Personal history of transient ischemic attack (TIA), and cerebral infarction without residual deficits; Z79.4 Long term (current) use of insulin; Z79.899 Other long term (current) drug therapy
CPT/HCPCS: 36415; 74177; 80053; 81003; 83690; 85025; 96361; 96374; 96375; 99285; J1885; J2270; J2405; J2765; J7030; Q9967

== ENCOUNTER 2023-07-30 09:35 | Emergency (ER) | payer OTHER ==
[~2023-07-30] VITALS: Ht 154.9 cm; Wt 74.8 kg
[~2023-07-30 09:35] MED LIST changes: +IBUP-2213 PO
[2023-07-30 09:42] VITALS: BP 140/63; PULSE 90; RESP 18; TEMP 98; O2SAT 98
[2023-07-30] MEDS: ONDANSETRON 4 MG/2 ML VIAL IVP ONE (10:37)
[2023-07-30] MEDS: NACL 0.9% 1,000 ML IV ONE (10:38)
[2023-07-30 10:49] LABS: APPEARANCE,URINE CLEAR (CLEAR); BILIRUBIN,URINE NEGATIVE (NEGATIVE); BLOOD, URINE TRACE-I (NEGATIVE); COLOR,URINE YELLOW (YELLOW); LEUKOCYTE ESTERASE ,URINE NEGATIVE (NEGATIVE); NITRITE, URINE NEGATIVE (NEGATIVE); PROTEIN,URINE NEGATIVE (NEGATIVE); UGLUCOSE 1+ (NEGATIVE)
[2023-07-30 11:00] LABS: BASOPHILS % (AUTO) 0.8 % (0.0-2.0); EOSINOPHILS # (AUTO) 0.1 K/uL (0-0.4); EOSINOPHILS % (AUTO) 1.9 % (0.0-4.0); HEMATOCRIT 45.9 % (36-48); HEMOGLOBIN 15.9 g/dL (12.0-16.0); LYMPHOCYTES # (AUTO) 2.6 K/uL (2.5-16.5); LYMPHOCYTES % (AUTO) 43.8 % (20.5-51.1); MEAN CORPUSCULAR HEMOGLOBIN 31 pg (27-31); MEAN CORPUSCULAR HGB CONC 35 g/dL (33-37); MEAN CORPUSCULAR VOLUME 90.2 fL (80-94); MONOCYTES # (AUTO) 0.3 K/uL (0.8-1.0); MONOCYTES % (AUTO) 5.2 % (1.7-9.3); NEUTROPHILS # (AUTO) 2.9 K/uL (1.8-7.7); NEUTROPHILS % (AUTO) 48.3 % (42.2-75.2); PLATELET COUNT (AUTO) 156 K/uL (140-450); RED BLOOD CELL COUNT(AUTO) 5.09 MIL/uL (4.20-5.40); WHITE BLOOD COUNT (AUTO) 5.9 K/uL (4.8-10.8)
[2023-07-30 11:07] LABS: BACTERIA,URINE 0-2 /HPF (None Seen); MUCUS,URINE 1+ /LPF (None Seen); RBC,URINE 0-5 /HPF (0-5); SQUAMOUS EPITHELIAL CELL,UR 20-50 /LPF (0-3 (FEW)); WBC,URINE 0-5 /HPF (0-5)
[2023-07-30 11:08] LABS: RED BLOOD CELL CASTS,URINE 0-10 /LPF (None Seen)
[2023-07-30 11:16] LABS: ANION GAP 11.9 (8-16); CALCIUM 9.1 mg/dL (8.5-10.1); CREATININE 0.7 mg/dL (0.6-1.3); POTASSIUM 3.9 mmol/L (3.5-5.1)
[2023-07-30 11:24] LABS: ALANINE AMINOTRANSFERASE 80 U/L (12-78); ALBUMIN 3.4 g/dL (3.4-5.0); ALKALINE PHOSPHATASE 101 U/L (50-136); ASPARTATE AMINOTRANSFERASE 100 U/L (15-37); BILIRUBIN,DIRECT 0.1 mg/dL (0.0-0.3); LIPASE 20 U/L (16-77); TOTAL PROTEIN, SERUM 8.3 g/dL (6.4-8.2)
[2023-07-30] MEDS: KETOROLAC 30 MG/ML VIAL IVP ONE (11:51)
[2023-07-30] MEDS: PROCHLORPERAZINE 10 MG/2 ML VIAL IVP ONE (11:51)
[2023-07-30] MEDS: diphenhydrAMINE 50 MG/ML VIAL IVP ONE (12:23)
[2023-07-30] MEDS ORDERED: ACET-9234 PO (13:19)
[2023-07-30 13:33] VITALS: BP 104/66; PULSE 75; RESP 16; TEMP 98; O2SAT 95
== END 2023-07-30 13:33 | disposition home or self-care (01) ==
LOC: MED 09:35
DX: G43.909 Migraine, unspecified, not intractable, without status migrainosus (principal); J45.909 Unspecified asthma, uncomplicated; E11.9 Type 2 diabetes mellitus without complications; K21.9 Gastro-esophageal reflux disease without esophagitis; Z86.73 Personal history of transient ischemic attack (TIA), and cerebral infarction without residual deficits; Z86.69 Personal history of other diseases of the nervous system and sense organs; Z86.39 Personal history of other endocrine, nutritional and metabolic disease; Z79.899 Other long term (current) drug therapy
CPT/HCPCS: 36415; 70450; 71045; 80048; 80076; 81001; 83690; 84484; 85025; 93005; 96361; 96374; 96375; 99285; J0780; J1200; J1885; J2405; J7030